=== PATIENT | male | born 1985 | race Two or more races ===

== ENCOUNTER 2017-11-01 19:34 | Emergency (ER) | payer SELFPAY | END 2017-11-01 21:06 | disposition home or self-care (01) | LOC: D.ER 19:34 | DX: S00.83XA Contusion of other part of head, initial encounter (principal); V43.12XA Car passenger injured in collision with other type car in nontraffic accident, initial encounter; Y93.89 Activity, other specified; Y92.410 Unspecified street and highway as the place of occurrence of the external cause; S80.02XA Contusion of left knee, initial encounter ==